=== PATIENT | female | born 1935 | race African-American/Black ===

== ENCOUNTER 2019-07-28 11:21 | Observation (INO) | payer MEDICARE ==
[2019-07-28] MEDS ORDERED: Labetalol HCl 100 MG/20 ML VIAL ONE (11:52)
[2019-07-28 12:01] LABS: #Basophils 0.1 thou/uL (0.0-0.2); #Eosinphils 0.2 thou/uL (0.0-0.7); #Lymphocytes 1.5 thou/uL (1.20-3.40); #Monocytes 0.5 thou/uL (0.11-0.59); #Neutrophils 4.7 thou/uL (1.40-6.50); %Basophils 1.1 % (0.0-1.0); %Eosinophils 2.7 % (0.0-10.0); %Lymphocytes 21.6 % (21.0-51.0); %Monocytes 6.7 % (0.0-10.0); %Neutrophils 67.9 % (42.0-75.0); Hemoglobin 13.1 g/dL (12.0-16.0); Mean Corpuscular HGB CONC 32.4 g/dL (32.0-36.0); Mean Corpuscular Hemoglobin 30.6 pg (27.0-31.0); Mean Corpuscular Volume 94.2 fL (78.0-98.0); Mean Platelet Volume 9.3 fL (7.4-10.4); Platelet Count 192 thou/uL (130-400); RBC Distribution Width 12.3 % (11.5-14.5); Red Blood Cell (RBC) Count 4.28 mill/uL (4.20-5.40); White Blood Cell (WBC) Count 6.9 thou/uL (4.8-10.8)
[2019-07-28 12:23] LABS: ALT (SGPT) 9 U/L (8-55); AST (SGOT) 11 U/L (5-34); Alkaline Phosphatase 137 U/L (40-110); Anion Gap 14 mmol/L (10-20); BUN (Urea Nitrogen) 25 mg/dL (9.8-20.1); Bilirubin, Total 0.4 mg/dL (0.2-1.2); CK (CPK) 576 U/L (29-168); Calc. Creatinine Clearance 0 mL/min (70-130); Calcium 9.3 mg/dL (7.8-10.44); Carbon Dioxide 27 mmol/L (23-31); Chloride 104 mmol/L (98-107); Estimated GFR-MDRD 62; Globulin 3.2 g/dL (2.4-3.5); Glucose 121 mg/dL (83-110); Potassium 3.9 mmol/L (3.5-5.1); Protein, Total 7.2 g/dL (6.0-8.3); Sodium 141 mmol/L (136-145)
--- NOTE | 2019-07-28 12:24 | RAD ---
Chest AP view INDICATION: Chest pain COMPARISON: Prior exam dated June 14, 2016 FINDINGS: Lungs:No focal consolidation is evident. There is stable elevation the right hemidiaphragm. Cardiac silhouette:The cardiomediastinal silhouette appears within normal limits. Pulmonary vasculature:Normal Pleural spaces:No pleural effusion or pneumothorax is demonstrated. Upper abdomen:No abnormality seen. Osseous structures: No acute osseous abnormality. Additional findings:There is stable dual-lead pacemaker overlying the left chest wall. IMPRESSION: No acute cardiopulmonary abnormality.
--- NOTE | 2019-07-28 14:49 | PDOC.HHP ---
Hospitalist HPI - History of Present Illness high blood pressure History of Present Illness: 83yo F w/ MHx of [place] s/p CABG (2010) and HTN presents for high blood pressure. Per patient, woke up this morning, felt like her vision was significantly blurry , and vision continued to be blurry despite being adherent to antihypertensive. During the day, fell and hit her knee because she lost her balance, so was brought to the ED. ED Course: In the ED, blood pressure was >210/120, so nitro and labetolol was administered , blurry vision resolved, and she was admitted to the telemetry floor. Hospitalist ROS - Review of Systems Constitutional: denies: fever, chills, sweats, weakness, malaise, other Eyes: reports: vision change Respiratory: denies: cough, dry, shortness of breath, hemoptysis, SOB with excertion, pleuritic pain, sputum, wheezing, other Cardiovascular: denies: chest pain, palpitations, orthopnea, paroxysmal noc. dyspnea, edema, light headedness, other Gastrointestinal: denies: nausea, vomiting, abdominal pain, diarrhea, constipation, melena, hematochezia, other Genitourinary: denies: dysuria, frequency, incontinence, hematuria, retention, other Neurological: denies: weakness, numbness, incoordination, change in speech, confusion, seizures, other All other systems reviewed; all pertinent +/- noted in HPI/Subj Hospitalist History - Past Medical History Cardiac: reports: CAD, HTN, [place], Other (bradycardia s/p pacemaker placement (2010 )) Heme/Onc: reports: Cancer (colon cancer s/p resection) - Past Surgical History Past Surgical History: reports: Hysterectomy - Family History Family History: reports: cardiac disorder, hypertension - Social History Smoking Status: Never smoker Alcohol: reports: None Drugs: reports: none Living Situation: Alone Activity level: independent ambulation - Exam General Appearance: NAD, awake alert Eye: PERRL ENT: normocephalic atraumatic, no oropharyngeal lesions, moist mucosa Neck: supple, symmetric, no JVD, no thyromegaly, no lymphadenopathy, no carotid bruit Heart: RRR, no murmur, no gallops, no rubs, normal peripheral pulses Heart - other findings: strong P2 Respiratory: CTAB, no wheezes, no rales, no ronchi, normal chest expansion, no tachypnea, normal percussion Gastrointestinal: soft, non-tender, non-distended, normal bowel sounds, no palpable masses, no hepatomegaly, no splenomegaly, no bruit Neurological: cranial nerve grossly intact, normal sensation to touch, no weakness, no focal deficits, no new deficit Musculoskeletal: normal tone, normal strength, no muscle wasting Psychiatric: normal affect, normal behavior, A&O x 3 Hospitalist Results - Labs Result Diagrams: 07/28/19 11:51 07/28/19 11:51 Lab results: WBC 6.9 thou/uL (4.8-10.8) 07/28/19 11:51 Hgb 13.1 g/dL (12.0-16.0) 07/28/19 11:51 Hct 40.3 % (36.0-47.0) 07/28/19 11:51 MCV 94.2 fL (78.0-98.0) 07/28/19 11:51 Plt Count 192 thou/uL (130-400) 07/28/19 11:51 Neutrophils % 67.9 % (42.0-75.0) 07/28/19 11:51 Sodium 141 mmol/L (136-145) 07/28/19 11:51 Potassium 3.9 mmol/L (3.5-5.1) 07/28/19 11:51 Chloride 104 mmol/L (98-107) 07/28/19 11:51 Carbon Dioxide 27 mmol/L (23-31) 07/28/19 11:51 BUN 25 mg/dL (9.8-20.1) H 07/28/19 11:51 Creatinine 1.03 mg/dL (0.6-1.1) 07/28/19 11:51 Glucose 121 mg/dL (83-110) H 07/28/19 11:51 Calcium 9.3 mg/dL (7.8-10.44) 07/28/19 11:51 Total Bilirubin 0.4 mg/dL (0.2-1.2) 07/28/19 11:51 AST 11 U/L (5-34) 07/28/19 11:51 ALT 9 U/L (8-55) 07/28/19 11:51 Alkaline Phosphatase 137 U/L (40-110) H 07/28/19 11:51 Creatine Kinase 576 U/L (29-168) H 07/28/19 11:51 Troponin I Less than 0.010 ng/mL (< 0.028) 07/28/19 11:51 Serum Total Protein 7.2 g/dL (6.0-8.3) 07/28/19 11:51 Albumin 4.0 g/dL (3.4-4.8) 07/28/19 11:51 - EKG Interpretation EKG: bifascicular block with nonspecific anteroseptal t-wave inversions - Radiology Interpretation Chest x-ray Status: image reviewed by hi Hospitalist H&P A/P - Problem (1) Hypertensive emergency Code(s): I16.1 - HYPERTENSIVE EMERGENCY Status: Acute (2) Coronary artery disease Code(s): I25.10 - ATHSCL HEART DISEASE OF [place] CORONARY ARTERY W/O ANG PCTRS Status: Acute - Plan Plan: * hypertensive emergency * likely due to suboptimal antihtn management as o/p * presented with >210/120 * in ED, reduced to ~180/100; at goal within first hour * subsequent 23 hours should be reduced by additional 10-15% * * continue trending trop * gave captopril once * will add hydrochlorothiazide in 6 hours to achieve progressive decrease in blood pressure on medication she'd be expected to be on at discharge * * CAD * continue aspirin, plavix * * code status * full; patient requests CPR but no intubation; surrogate decision maker is friend, as per chart
[2019-07-28 15:55] VITALS: BMI 35.2
[2019-07-28] MEDS ORDERED: Hydrochlorothiazide 25 MG TAB PO SCH ×2 (16:15→21:00)
[2019-07-28 16:30] LABS: Troponin I Less than 0.010 ng/mL (< 0.028)
[2019-07-28 19:20] LABS: Troponin I Less than 0.010 ng/mL (< 0.028)
[2019-07-29 05:16] LABS: Anion Gap 12 mmol/L (10-20); BUN (Urea Nitrogen) 24 mg/dL (9.8-20.1); Calc. Creatinine Clearance 64 mL/min (70-130); Calcium 8.7 mg/dL (7.8-10.44); Carbon Dioxide 26 mmol/L (23-31); Chloride 107 mmol/L (98-107); Estimated GFR-MDRD 66; Glucose 96 mg/dL (83-110); Magnesium 2.1 mg/dL (1.6-2.6); Sodium 141 mmol/L (136-145)
[2019-07-29] MEDS ORDERED: Carvedilol 25 MG TAB PO SCH (08:00)
[2019-07-29] MEDS ORDERED: Clopidogrel Bisulfate 75 MG TAB PO SCH (09:00)
[2019-07-29] MEDS ORDERED: Aspirin 81 mg Enteric Coated Tablet PO SCH (09:00)
[2019-07-29] MEDS ORDERED: Hydrochlorothiazide 25 MG TAB PO SCH (09:00)
[2019-07-29] MEDS ORDERED: Enoxaparin Sodium 30 MG/0.3 ML SYRINGE SC SCH (09:00)
[2019-07-29] MEDS ORDERED: Lisinopril 20 MG TAB PO SCH (09:00)
[2019-07-29 12:15] VITALS: TEMP 97.6
[2019-07-29 12:43] VITALS: BP 135/66
--- NOTE | 2019-07-31 02:00 | DIS ---
DATE OF ADMISSION: 07/28/2019 DATE OF DISCHARGE: 07/29/2019 HOSPITAL COURSE: Ms. Wakefield is an 83-year-old female with a medical history of myocardial infarction status post CABG in 2010 and hypertension, who presented for high blood pressure. She was having blurry vision, is not being adherent to her antihypertensives at home. On presentation, she was found to have grossly elevated blood pressure and was diagnosed with hypertensive emergency, likely due to suboptimal antihypertensive management as an outpatient. In the ED, the blood pressure was reduced to within goal within the 1st hour and subsequently she was admitted to the telemetry floor where the blood pressure was reduced progressively. On the day of discharge, she was hemodynamically stable and blood pressure was within goal. She was discharged home with followup appointments to her PCP after being educated regarding adjusting her antihypertensive medication. PHYSICAL EXAMINATION: VITAL SIGNS: Unremarkable. GENERAL: She was in no distress. Alert and oriented x3. NECK: There was no JVD. CARDIAC: Regular rate and rhythm. No murmurs, no gallops. LUNGS: Clear to auscultation bilaterally. No rales, wheezing, or rhonchi. No tachypnea. ABDOMEN: Nontender, nondistended. Normal bowel sounds. EXTREMITIES: No edema. NEUROLOGIC: Cranial nerves grossly intact. No focal weakness. PSYCHIATRIC: Normal affect. Normal behavior. Alert and oriented x3. ASSESSMENT AND PLAN: Ms. Wakefield is an 83-year-old female who presented with; 1. Hypertensive emergency due to suboptimal antihypertensive management as an outpatient. The patient was educated regarding lifestyle modifications as well as additional pharmacologic management. She was discharged with followup appointments to her PCP to follow her blood pressure. 2. Coronary artery disease. The patient had no signs of acute ischemia on EKG, troponin was mildly elevated, most likely due to hypertensive emergency. As an inpatient, she was continued on her home medication of aspirin and Plavix. Job ID: [id number]
== END 2019-07-29 13:34 | disposition home or self-care (01) ==
LOC: ERS 11:21 → 2SW 15:54
PROVIDERS: ADMIT Internal Medicine; ATTEND Internal Medicine
DX: I16.1 Hypertensive emergency (principal); I10 Essential (primary) hypertension; I25.10 Atherosclerotic heart disease of native coronary artery without angina pectoris; I25.2 Old myocardial infarction; Z79.02 Long term (current) use of antithrombotics/antiplatelets; Z79.82 Long term (current) use of aspirin; Z79.899 Other long term (current) drug therapy; Z85.038 Personal history of other malignant neoplasm of large intestine; Z90.49 Acquired absence of other specified parts of digestive tract; Z90.710 Acquired absence of both cervix and uterus; Z91.040 Latex allergy status; Z95.1 Presence of aortocoronary bypass graft; Z95.0 Presence of cardiac pacemaker
CPT/HCPCS: 36415; 71045; 80048; 80053; 82550; 83735; 84484; 85025; 93005; 96372; 96374; G0378; J1650

== ENCOUNTER 2020-11-17 19:58 | Inpatient (IN) | payer MEDICARE ==
[2020-11-17 20:33] LABS: #Eosinphils 0.3 thou/uL (0.0-0.7); #Lymphocytes 1.6 thou/uL (1.20-3.40); #Monocytes 0.6 thou/uL (0.11-0.59); #Neutrophils 7.4 thou/uL (1.40-6.50); %Basophils 0.2 % (0.0-1.0); %Eosinophils 2.9 % (0.0-10.0); %Lymphocytes 15.8 % (21.0-51.0); %Monocytes 6.5 % (0.0-10.0); %Neutrophils 74.7 % (42.0-75.0); Hemoglobin 11.8 g/dL (12.0-16.0); Mean Corpuscular HGB CONC 33.1 g/dL (32.0-36.0); Mean Corpuscular Hemoglobin 30.5 pg (27.0-31.0); Mean Corpuscular Volume 92.2 fL (78.0-98.0); Mean Platelet Volume 9.5 fL (7.4-10.4); Platelet Count 215 thou/uL (130-400); RBC Distribution Width 13.1 % (11.5-14.5); Red Blood Cell (RBC) Count 3.86 mill/uL (4.20-5.40); White Blood Cell (WBC) Count 9.9 thou/uL (4.8-10.8)
[2020-11-17 20:52] LABS: ALT (SGPT) 7 U/L (8-55); AST (SGOT) 14 U/L (5-34); Albumin 3.8 g/dL (3.4-4.8); Alkaline Phosphatase 115 U/L (40-110); Anion Gap 15 mmol/L (10-20); BUN (Urea Nitrogen) 60 mg/dL (9.8-20.1); Bilirubin, Total 0.3 mg/dL (0.2-1.2); Calc. Creatinine Clearance 0 mL/min (70-130); Calcium 9.2 mg/dL (7.8-10.44); Carbon Dioxide 25 mmol/L (23-31); Chloride 103 mmol/L (98-107); Globulin 3.5 g/dL (2.4-3.5); Glucose 155 mg/dL (83-110); Lipase 12 U/L (8-78); Potassium 3.6 mmol/L (3.5-5.1); Protein, Total 7.3 g/dL (5.8-8.1); Sodium 139 mmol/L (136-145)
[2020-11-17] MEDS ORDERED: Ondansetron PF 4 MG/2 ML Vial ONE (20:56)
[2020-11-17] MEDS ORDERED: Pantoprazole 40 MG VIAL ONE (20:56)
[2020-11-17] MEDS ORDERED: Mag-Al 1200 mg/1200 mg/30 ML UDCUP ONE (20:56)
[2020-11-17] MEDS ORDERED: Lidocaine Viscous Sol 2% 15 ml UD Cup ONE (20:56)
[2020-11-17] MEDS ORDERED: Famotidine/PF 20 mg/2ml Vial ONE (21:04)
[2020-11-17] MEDS ORDERED: diphenhydrAMINE 50 MG/ML VIAL ONE (21:04)
[2020-11-17] MEDS ORDERED: methylPREDNISolone Sod Succ/PF 125 MG/2 ML VIAL ONE (21:05)
[2020-11-17 21:06] LABS: Bilirubin Negative (Negative); Blood, Urine Negative (Negative); Clarity Clear (Clear); Glucose, Urine (Dipstick) Normal (Negative); Ketone, Urine Negative (Negative); Leukocyte Negative Leu/uL (Negative); Nitrite Negative (Negative); Protein, Urine (Dipstick) Negative (Neg-Trace); Specific Gravity, Urine 1.013 (1.002-1.036); Urobilinogen Normal mg/dL (Less than 2)
[2020-11-17] MEDS ORDERED: Ondansetron PF 4 MG/2 ML Vial IVP PRN (22:08)
[2020-11-17] MEDS ORDERED: Morphine 4 MG/ML VIAL SLOW IVP PRN (22:40)
[2020-11-17] MEDS ORDERED: metroNIDAZOLE 500 MG/100 ML BAG ONE (22:58)
[2020-11-18] MEDS: metroNIDAZOLE 500 MG in Premix Bag 1 BAG IVPB SCH ×2 (01:19→06:06)
[2020-11-18 01:35] VITALS: BMI 34.7
[2020-11-18] MEDS: Potassium Chloride 10 MEQ in Dextrose 5%-Lactated Ringers 1,000 ML IV SCH ×2 (03:35→07:50)
[2020-11-18 03:56] LABS: SARS-CoV-2 NAA Rapid Test Not Detected (NotDetected)
[2020-11-18 05:18] LABS: #Lymphocytes 0.9 thou/uL (1.20-3.40); #Monocytes 0.1 thou/uL (0.11-0.59); #Neutrophils 7.5 thou/uL (1.40-6.50); %Basophils 0.1 % (0.0-1.0); %Eosinophils 0.2 % (0.0-10.0); %Lymphocytes 10.8 % (21.0-51.0); %Monocytes 0.7 % (0.0-10.0); %Neutrophils 88.2 % (42.0-75.0); Hemoglobin 11.5 g/dL (12.0-16.0); Mean Corpuscular HGB CONC 32.6 g/dL (32.0-36.0); Mean Corpuscular Hemoglobin 30.1 pg (27.0-31.0); Mean Corpuscular Volume 92.4 fL (78.0-98.0); Mean Platelet Volume 9.9 fL (7.4-10.4); Platelet Count 194 thou/uL (130-400); RBC Distribution Width 13.1 % (11.5-14.5); Red Blood Cell (RBC) Count 3.81 mill/uL (4.20-5.40); White Blood Cell (WBC) Count 8.5 thou/uL (4.8-10.8)
[2020-11-18 05:34] LABS: Anion Gap 14 mmol/L (10-20); BUN (Urea Nitrogen) 52 mg/dL (9.8-20.1); Calc. Creatinine Clearance 24 mL/min (70-130); Calcium 8.6 mg/dL (7.8-10.44); Carbon Dioxide 23 mmol/L (23-31); Chloride 104 mmol/L (98-107); Glucose 195 mg/dL (83-110); Sodium 137 mmol/L (136-145)
[2020-11-18 06:27] LABS: Creatinine, Urine 78.59 mg/dL (47-110)
[2020-11-18] MEDS: Famotidine/PF 20 mg/2ml Vial SLOW IVP SCH (07:41)
[2020-11-18] MEDS: Sodium Chloride 0.9% 1,000 ML IV SCH (11:43)
[2020-11-18] MEDS ORDERED: metroNIDAZOLE 500 MG in Premix Bag 1 BAG IVPB SCH (14:00)
[2020-11-18] MEDS ORDERED: Potassium Chloride 10 MEQ in Dextrose 5%-Lactated Ringers 1,000 ML IV SCH (14:00)
[2020-11-18] MEDS ORDERED: GoLYTELY 4,000 ml Bottle PO SCH ×2 (14:30→15:00)
[2020-11-18] MEDS: hydrALAZINE 20 MG/ML VIAL SLOW IVP PRN (15:27)
[2020-11-19] MEDS: metroNIDAZOLE 500 MG in Premix Bag 1 BAG IVPB SCH ×3 (02:47→18:16)
[2020-11-19] MEDS: Sodium Chloride 0.9% 1,000 ML IV SCH ×3 (02:47→13:25)
[2020-11-19 05:46] LABS: #Eosinphils 0.1 thou/uL (0.0-0.7); #Lymphocytes 1.9 thou/uL (1.20-3.40); #Monocytes 0.6 thou/uL (0.11-0.59); #Neutrophils 8.4 thou/uL (1.40-6.50); %Basophils 0.3 % (0.0-1.0); %Eosinophils 0.8 % (0.0-10.0); %Lymphocytes 17.3 % (21.0-51.0); %Monocytes 5.5 % (0.0-10.0); %Neutrophils 76.1 % (42.0-75.0); Hemoglobin 10.1 g/dL (12.0-16.0); Mean Corpuscular HGB CONC 32.8 g/dL (32.0-36.0); Mean Corpuscular Hemoglobin 30.5 pg (27.0-31.0); Mean Corpuscular Volume 93.2 fL (78.0-98.0); Mean Platelet Volume 9.6 fL (7.4-10.4); Platelet Count 182 thou/uL (130-400); RBC Distribution Width 13.2 % (11.5-14.5); Red Blood Cell (RBC) Count 3.31 mill/uL (4.20-5.40)
[2020-11-19 06:02] LABS: Anion Gap 11 mmol/L (10-20); BUN (Urea Nitrogen) 32 mg/dL (9.8-20.1); Calc. Creatinine Clearance 39 mL/min (70-130); Calcium 8.1 mg/dL (7.8-10.44); Carbon Dioxide 27 mmol/L (23-31); Chloride 108 mmol/L (98-107); Glucose 97 mg/dL (83-110); Potassium 3.8 mmol/L (3.5-5.1); Sodium 142 mmol/L (136-145)
[2020-11-19] MEDS: Famotidine/PF 20 mg/2ml Vial SLOW IVP SCH (08:27)
[2020-11-19] MEDS ORDERED: PROPOFOL 200 MG/20 ML VIAL ONE (13:19)
[2020-11-19] MEDS ORDERED: Lidocaine 1% PF 5 ML VIAL ONE (13:19)
[2020-11-19] MEDS ORDERED: Ondansetron HCl/PF 4 MG/2 ML Vial IVP PRN (13:29)
[2020-11-19] MEDS ORDERED: Pantoprazole 40 MG GRANULES PACKET PO SCH (15:14)
[2020-11-19] MEDS: hydrALAZINE 20 MG/ML VIAL SLOW IVP PRN (15:25)
[2020-11-19] MEDS: predniSONE 50 MG TAB PO SCH (20:30)
[2020-11-20] MEDS: predniSONE 50 MG TAB PO SCH ×2 (01:25→08:58)
[2020-11-20] MEDS: metroNIDAZOLE 500 MG in Premix Bag 1 BAG IVPB SCH (01:25)
[2020-11-20] MEDS: hydrALAZINE 20 MG/ML VIAL SLOW IVP PRN (03:39)
[2020-11-20] MEDS ORDERED: diphenhydrAMINE 50 MG CAP PO SCH (08:00)
[2020-11-20 08:26] LABS: #Lymphocytes 1.1 thou/uL (1.20-3.40); #Monocytes 0.1 thou/uL (0.11-0.59); #Neutrophils 7.3 thou/uL (1.40-6.50); %Basophils 0.1 % (0.0-1.0); %Eosinophils 0.1 % (0.0-10.0); %Lymphocytes 12.4 % (21.0-51.0); %Monocytes 0.9 % (0.0-10.0); %Neutrophils 86.4 % (42.0-75.0); Hemoglobin 12.4 g/dL (12.0-16.0); Mean Corpuscular HGB CONC 31.9 g/dL (32.0-36.0); Mean Corpuscular Hemoglobin 30.1 pg (27.0-31.0); Mean Corpuscular Volume 94.4 fL (78.0-98.0); Mean Platelet Volume 9.8 fL (7.4-10.4); Platelet Count 207 thou/uL (130-400); RBC Distribution Width 13.3 % (11.5-14.5); Red Blood Cell (RBC) Count 4.13 mill/uL (4.20-5.40); White Blood Cell (WBC) Count 8.5 thou/uL (4.8-10.8)
[2020-11-20 08:43] LABS: ALT (SGPT) Less than 7 U/L (8-55); AST (SGOT) 11 U/L (5-34); Albumin 3.5 g/dL (3.4-4.8); Alkaline Phosphatase 115 U/L (40-110); Anion Gap 15 mmol/L (10-20); BUN (Urea Nitrogen) 20 mg/dL (9.8-20.1); Bilirubin, Total 0.3 mg/dL (0.2-1.2); Calc. Creatinine Clearance 43 mL/min (70-130); Calcium 8.9 mg/dL (7.8-10.44); Carbon Dioxide 24 mmol/L (23-31); Chloride 106 mmol/L (98-107); Globulin 3.2 g/dL (2.4-3.5); Glucose 143 mg/dL (83-110); Potassium 3.9 mmol/L (3.5-5.1); Protein, Total 6.7 g/dL (5.8-8.1); Sodium 141 mmol/L (136-145)
[2020-11-20] MEDS ORDERED: Carvedilol 25 MG TAB PO SCH (09:00)
[2020-11-20] MEDS ORDERED: Lisinopril 20 MG TAB PO SCH (09:00)
[2020-11-20] MEDS ORDERED: Amlodipine 5 MG TAB PO SCH (09:00)
[2020-11-20] MEDS ORDERED: Furosemide 20 MG TAB PO SCH (09:00)
[2020-11-20] MEDS ORDERED: Iopamidol 370 76% 100 ML VIAL ONE (09:59)
[2020-11-20 11:22] VITALS: BP 179/78; TEMP 98
== END 2020-11-20 16:17 | disposition home or self-care (01) | DRG 394 ==
LOC: ERS 19:58 → 2SW 22:08
PROVIDERS: ADMIT Internal Medicine; ATTEND Internal Medicine
PROC: 0DB78ZX Excision of Stomach, Pylorus, Via Natural or Artificial Opening Endoscopic, Diagnostic (ICD-10-PCS; principal; 2020-11-19)
PROC: 0DBM8ZZ Excision of Descending Colon, Via Natural or Artificial Opening Endoscopic (ICD-10-PCS; 2020-11-19)
PROC: 0DBL8ZZ Excision of Transverse Colon, Via Natural or Artificial Opening Endoscopic (ICD-10-PCS; 2020-11-19)
DX: D3A.019 Benign carcinoid tumor of the small intestine, unspecified portion (principal); N17.9 Acute kidney failure, unspecified; K57.32 Diverticulitis of large intestine without perforation or abscess without bleeding; Z20.822 Contact with and (suspected) exposure to COVID-19; I25.10 Atherosclerotic heart disease of native coronary artery without angina pectoris; Z90.710 Acquired absence of both cervix and uterus; I49.5 Sick sinus syndrome; E66.9 Obesity, unspecified; E86.9 Volume depletion, unspecified; N18.30 Chronic kidney disease, stage 3 unspecified; I12.9 Hypertensive chronic kidney disease with stage 1 through stage 4 chronic kidney disease, or unspecified chronic kidney disease; D53.9 Nutritional anemia, unspecified; M48.10 Ankylosing hyperostosis [Forestier], site unspecified; K29.70 Gastritis, unspecified, without bleeding; K20.90 Esophagitis, unspecified without bleeding; D12.4 Benign neoplasm of descending colon; D12.3 Benign neoplasm of transverse colon; Z95.1 Presence of aortocoronary bypass graft; Z95.0 Presence of cardiac pacemaker; Z85.038 Personal history of other malignant neoplasm of large intestine; Z90.49 Acquired absence of other specified parts of digestive tract; Z91.09 Other allergy status, other than to drugs and biological substances; Z79.899 Other long term (current) drug therapy; Z79.02 Long term (current) use of antithrombotics/antiplatelets; Z68.34 Body mass index [BMI] 34.0-34.9, adult
CPT/HCPCS: 36415; 51701; 74176; 74178; 80048; 80053; 81003; 82274; 82550; 82570; 83690; 84300; 85025; 88305; 93306; 96365; 96367; 96375; C9113; J0360; J1200; J1956; J2405; J2704; J2930; J7512; Q9967; S0028; U0002

== ENCOUNTER 2021-05-28 17:13 | Inpatient (IN) | payer MEDICARE ==
[2021-05-28 18:01] LABS: #Eosinphils 1.5 thou/uL (0.0-0.7); #Lymphocytes 2.4 thou/uL (1.20-3.40); #Monocytes 1.1 thou/uL (0.11-0.59); #Neutrophils 10.6 thou/uL (1.40-6.50); %Basophils 0.1 % (0.0-1.0); %Eosinophils 9.6 % (0.0-10.0); %Lymphocytes 15.2 % (21.0-51.0); %Monocytes 6.9 % (0.0-10.0); %Neutrophils 68.2 % (42.0-75.0); Hemoglobin 12.3 g/dL (12.0-16.0); Mean Corpuscular HGB CONC 31.9 g/dL (32.0-36.0); Mean Corpuscular Hemoglobin 30.4 pg (27.0-31.0); Mean Corpuscular Volume 95.5 fL (78.0-98.0); Platelet Count 270 thou/uL (130-400); RBC Distribution Width 14.1 % (11.5-14.5); Red Blood Cell (RBC) Count 4.03 mill/uL (4.20-5.40); White Blood Cell (WBC) Count 15.5 thou/uL (4.8-10.8)
[2021-05-28] MEDS ORDERED: Furosemide 40 MG/4 ML VIAL ONE (18:02)
[2021-05-28] MEDS ORDERED: Albuterol 200 PUFF (6.7GM INHALER) ONE (18:02)
[2021-05-28] MEDS ORDERED: methylPREDNISolone Sod Succ/PF 125 MG/2 ML VIAL ONE (18:02)
[2021-05-28] MEDS ORDERED: Nitroglycerin 50 MG/250 ML BOT 250 ML ONE (18:02)
[2021-05-28 18:31] LABS: ALT (SGPT) 12 U/L (8-55); AST (SGOT) 26 U/L (5-34); Albumin 3.8 g/dL (3.4-4.8); Alkaline Phosphatase 123 U/L (40-110); Anion Gap 14 mmol/L (10-20); BUN (Urea Nitrogen) 9 mg/dL (9.8-20.1); Bilirubin, Total 0.9 mg/dL (0.2-1.2); Calc. Creatinine Clearance 0 mL/min (70-130); Calcium 9.3 mg/dL (7.8-10.44); Carbon Dioxide 28 mmol/L (23-31); Chloride 102 mmol/L (98-107); Globulin 3.7 g/dL (2.4-3.5); Glucose 179 mg/dL (83-110); Potassium 3.5 mmol/L (3.5-5.1); Protein, Total 7.5 g/dL (5.8-8.1); Sodium 140 mmol/L (136-145)
[2021-05-28] MEDS ORDERED: Vancomycin 1 GM/200 ML BAG ONE (19:04)
[2021-05-28 19:23] LABS: Bilirubin Negative (Negative); Blood, Urine Negative (Negative); Clarity Clear (Clear); Glucose, Urine (Dipstick) Normal (Negative); Ketone, Urine Negative (Negative); Leukocyte Negative Leu/uL (Negative); Nitrite Negative (Negative); Protein, Urine (Dipstick) Negative (Neg-Trace); Specific Gravity, Urine 1.006 (1.002-1.036); Urobilinogen Normal mg/dL (Less than 2)
[2021-05-28] MEDS ORDERED: Ondansetron ODT 4 MG TAB PO PRN (19:47)
[2021-05-28] MEDS ORDERED: Acetaminophen 650 MG Suppository PR PRN (19:47)
[2021-05-28] MEDS ORDERED: Acetaminophen 325 MG TAB PO PRN (19:47)
[2021-05-28] MEDS ORDERED: Ondansetron PF 4 MG/2 ML Vial IVP PRN (19:47)
[2021-05-28 20:01] LABS: SARS-CoV-2 NAA Rapid Test Not Detected (NotDetected)
[2021-05-28] MEDS ORDERED: Potassium Chloride 20 MEQ TAB PO SCH (20:15)
[2021-05-28] MEDS ORDERED: Piperacillin/Tazobactam 4.5 GM in Sodium Chloride 0.9% 100 ML IVPB SCH (20:30)
[2021-05-28] MEDS ORDERED: Electrolyte Replacement Protocol 1 EACH FS SCH (21:00)
[2021-05-28 22:18] VITALS: BMI 34.8
[2021-05-28] MEDS: hydrALAZINE 20 MG/ML VIAL SLOW IVP PRN (22:35)
[2021-05-28 22:48] LABS: Lactic Acid 1.4 mmol/L (0.5-2.2)
[2021-05-28 22:53] LABS: Magnesium 1.4 mg/dL (1.6-2.6)
[2021-05-28 22:58] LABS: Troponin I 0.039 ng/mL (< 0.028)
[2021-05-28] MEDS: Labetalol HCl 100 MG/20 ML VIAL SLOW IVP PRN (23:34)
[2021-05-29] MEDS: Nitroglycerin 50 MG/250 ML BOT 250 ML IVPB SCH ×2 (00:35→16:50)
[2021-05-29 00:51] LABS: Troponin I 0.036 ng/mL (< 0.028)
[2021-05-29] MEDS ORDERED: cefTRIAXone\\ROCEPHIN 1 GM VIAL ONE (03:48)
[2021-05-29] MEDS: cefTRIAXone\\ROCEPHIN 1 GM in Sodium Chloride 0.9% 100 ML IVPB SCH (03:52)
[2021-05-29 03:55] LABS: #Lymphocytes 0.9 thou/uL (1.20-3.40); #Monocytes 0.1 thou/uL (0.11-0.59); #Neutrophils 7.9 thou/uL (1.40-6.50); %Eosinophils 0.3 % (0.0-10.0); %Lymphocytes 10.4 % (21.0-51.0); %Monocytes 1.5 % (0.0-10.0); %Neutrophils 87.9 % (42.0-75.0); Hemoglobin 11.6 g/dL (12.0-16.0); Mean Corpuscular HGB CONC 32.9 g/dL (32.0-36.0); Mean Corpuscular Hemoglobin 31.1 pg (27.0-31.0); Mean Corpuscular Volume 94.5 fL (78.0-98.0); Mean Platelet Volume 9.1 fL (7.4-10.4); Platelet Count 238 thou/uL (130-400); Red Blood Cell (RBC) Count 3.72 mill/uL (4.20-5.40)
[2021-05-29 04:24] LABS: Anion Gap 12 mmol/L (10-20); BUN (Urea Nitrogen) 10 mg/dL (9.8-20.1); Calc. Creatinine Clearance 65 mL/min (70-130); Carbon Dioxide 33 mmol/L (23-31); Chloride 98 mmol/L (98-107); Glucose 183 mg/dL (83-110); Magnesium 1.4 mg/dL (1.6-2.6); Sodium 140 mmol/L (136-145)
[2021-05-29] MEDS: Labetalol HCl 100 MG/20 ML VIAL SLOW IVP PRN (05:06)
[2021-05-29] MEDS: Magnesium 2 GM/50 ML 2 GM in Premix Bag 1 BAG IVPB SCH ×2 (05:20→06:25)
[2021-05-29] MEDS: Potassium Chloride 20 MEQ in Premix Bag 1 BAG IVPB SCH ×2 (05:20→08:40)
[2021-05-29] MEDS: Enoxaparin Sodium 40 MG/0.4 ML SYRINGE SC SCH (08:40)
[2021-05-29] MEDS ORDERED: Potassium Chloride 20 MEQ TAB PO SCH (10:45)
[2021-05-29] MEDS ORDERED: Furosemide 40 MG/4 ML VIAL SLOW IVP SCH (10:45)
[2021-05-29] MEDS ORDERED: Carvedilol 25 MG TAB PO SCH (12:15)
[2021-05-29] MEDS ORDERED: Lisinopril 20 MG TAB PO SCH (12:15)
[2021-05-29] MEDS ORDERED: Aspirin 81 mg Enteric Coated Tablet PO SCH (14:00)
[2021-05-29] MEDS ORDERED: Clopidogrel Bisulfate 75 MG TAB PO SCH (14:00)
[2021-05-29] MEDS: Carvedilol 25 MG TAB PO SCH (16:51)
[2021-05-30] MEDS: cefTRIAXone\\ROCEPHIN 1 GM in Sodium Chloride 0.9% 100 ML IVPB SCH (03:33)
[2021-05-30 03:51] LABS: #Eosinphils 0.3 thou/uL (0.0-0.7); #Lymphocytes 1.2 thou/uL (1.20-3.40); #Monocytes 0.8 thou/uL (0.11-0.59); #Neutrophils 7.3 thou/uL (1.40-6.50); %Eosinophils 3.2 % (0.0-10.0); %Lymphocytes 12.5 % (21.0-51.0); %Monocytes 8.1 % (0.0-10.0); %Neutrophils 76.2 % (42.0-75.0); Hemoglobin 10.2 g/dL (12.0-16.0); Mean Corpuscular HGB CONC 32.7 g/dL (32.0-36.0); Mean Corpuscular Hemoglobin 30.9 pg (27.0-31.0); Mean Corpuscular Volume 94.7 fL (78.0-98.0); Mean Platelet Volume 9.3 fL (7.4-10.4); Platelet Count 210 thou/uL (130-400); RBC Distribution Width 14.2 % (11.5-14.5); Red Blood Cell (RBC) Count 3.31 mill/uL (4.20-5.40); White Blood Cell (WBC) Count 9.5 thou/uL (4.8-10.8)
[2021-05-30 04:14] LABS: Anion Gap 10 mmol/L (10-20); BUN (Urea Nitrogen) 16 mg/dL (9.8-20.1); Calc. Creatinine Clearance 53 mL/min (70-130); Calcium 8.7 mg/dL (7.8-10.44); Carbon Dioxide 32 mmol/L (23-31); Chloride 101 mmol/L (98-107); Glucose 107 mg/dL (83-110); Magnesium 2.2 mg/dL (1.6-2.6); Phosphorus 3.7 mg/dL (2.3-4.7); Potassium 3.5 mmol/L (3.5-5.1); Sodium 139 mmol/L (136-145)
[2021-05-30] MEDS: Enoxaparin Sodium 40 MG/0.4 ML SYRINGE SC SCH (07:39)
[2021-05-30] MEDS: Saccharomyces boulardii 250 MG CAP PO SCH (07:40)
[2021-05-30] MEDS: Clopidogrel Bisulfate 75 MG TAB PO SCH (07:40)
[2021-05-30] MEDS: Carvedilol 25 MG TAB PO SCH ×2 (07:40→16:18)
[2021-05-30] MEDS: Aspirin 81 mg Enteric Coated Tablet PO SCH (07:40)
[2021-05-30] MEDS: Lisinopril 20 MG TAB PO SCH (07:40)
[2021-05-30] MEDS ORDERED: Potassium Chloride 20 MEQ TAB PO SCH ×3 (07:45→16:45)
[2021-05-30] MEDS: Furosemide 40 MG/4 ML VIAL SLOW IVP SCH ×2 (11:11→20:34)
[2021-05-30] MEDS ORDERED: Electrolyte Replacement Protocol 1 EACH FS SCH (14:00)
[2021-05-30 14:41] LABS: Potassium 3.8 mmol/L (3.5-5.1)
[2021-05-31 05:06] LABS: #Eosinphils 0.4 thou/uL (0.0-0.7); #Lymphocytes 1.4 thou/uL (1.20-3.40); #Monocytes 0.8 thou/uL (0.11-0.59); #Neutrophils 5.2 thou/uL (1.40-6.50); %Basophils 0.5 % (0.0-1.0); %Eosinophils 4.8 % (0.0-10.0); %Lymphocytes 17.5 % (21.0-51.0); %Monocytes 9.7 % (0.0-10.0); %Neutrophils 67.4 % (42.0-75.0); Hemoglobin 11.3 g/dL (12.0-16.0); Mean Corpuscular HGB CONC 32.3 g/dL (32.0-36.0); Mean Corpuscular Hemoglobin 30.7 pg (27.0-31.0); Mean Corpuscular Volume 95.3 fL (78.0-98.0); Mean Platelet Volume 9.2 fL (7.4-10.4); Platelet Count 221 thou/uL (130-400); Red Blood Cell (RBC) Count 3.68 mill/uL (4.20-5.40); White Blood Cell (WBC) Count 7.8 thou/uL (4.8-10.8)
[2021-05-31] MEDS: hydrALAZINE 20 MG/ML VIAL SLOW IVP PRN (05:16)
[2021-05-31 05:25] LABS: Anion Gap 11 mmol/L (10-20); BUN (Urea Nitrogen) 16 mg/dL (9.8-20.1); Calc. Creatinine Clearance 60 mL/min (70-130); Calcium 9.1 mg/dL (7.8-10.44); Carbon Dioxide 34 mmol/L (23-31); Chloride 101 mmol/L (98-107); Glucose 86 mg/dL (83-110); Sodium 142 mmol/L (136-145)
[2021-05-31] MEDS ORDERED: Magnesium 2 GM/50 ML 2 GM in Premix Bag 1 BAG IVPB SCH (07:45)
[2021-05-31] MEDS: Clopidogrel Bisulfate 75 MG TAB PO SCH (09:21)
[2021-05-31] MEDS: Carvedilol 25 MG TAB PO SCH ×2 (09:21→17:47)
[2021-05-31] MEDS: Enoxaparin Sodium 40 MG/0.4 ML SYRINGE SC SCH (09:21)
[2021-05-31] MEDS: Aspirin 81 mg Enteric Coated Tablet PO SCH (09:21)
[2021-05-31] MEDS: Saccharomyces boulardii 250 MG CAP PO SCH (09:21)
[2021-05-31] MEDS: Potassium Chloride 20 MEQ TAB PO SCH (09:22)
[2021-05-31] MEDS: Lisinopril 20 MG TAB PO SCH (09:22)
[2021-05-31] MEDS ORDERED: Amlodipine 5 MG TAB PO SCH (09:45)
[2021-05-31] MEDS: Furosemide 40 MG/4 ML VIAL SLOW IVP SCH (12:31)
[2021-06-01 04:55] LABS: Magnesium 2.1 mg/dL (1.6-2.6)
[2021-06-01] MEDS: Potassium Chloride 20 MEQ TAB PO SCH (08:31)
[2021-06-01] MEDS: Clopidogrel Bisulfate 75 MG TAB PO SCH (08:32)
[2021-06-01] MEDS: Aspirin 81 mg Enteric Coated Tablet PO SCH (08:32)
[2021-06-01] MEDS: Carvedilol 25 MG TAB PO SCH ×2 (08:32→16:28)
[2021-06-01] MEDS: Saccharomyces boulardii 250 MG CAP PO SCH (08:32)
[2021-06-01] MEDS: Enoxaparin Sodium 40 MG/0.4 ML SYRINGE SC SCH (08:33)
[2021-06-01] MEDS: Lisinopril 20 MG TAB PO SCH (08:38)
[2021-06-01] MEDS ORDERED: Amlodipine 5 MG TAB PO SCH (09:00)
[2021-06-01] MEDS: hydrALAZINE 20 MG/ML VIAL SLOW IVP PRN (23:53)
[2021-06-02] MEDS: Clopidogrel Bisulfate 75 MG TAB PO SCH (08:46)
[2021-06-02] MEDS: Aspirin 81 mg Enteric Coated Tablet PO SCH (08:48)
[2021-06-02] MEDS: Carvedilol 25 MG TAB PO SCH (08:48)
[2021-06-02] MEDS: Enoxaparin Sodium 40 MG/0.4 ML SYRINGE SC SCH (08:48)
[2021-06-02] MEDS: Saccharomyces boulardii 250 MG CAP PO SCH (08:48)
[2021-06-02] MEDS ORDERED: Hydrochlorothiazide 25 MG TAB PO SCH (09:00)
[2021-06-02] MEDS ORDERED: Lisinopril 20 MG TAB PO SCH (09:00)
[2021-06-02] MEDS ORDERED: Amlodipine 10 MG TAB PO SCH (09:00)
[2021-06-02] MEDS ORDERED: hydrALAZINE 25 MG TAB PO SCH (09:00)
[2021-06-02 12:49] VITALS: BP 176/77; TEMP 98.8
== END 2021-06-02 15:30 | disposition home or self-care (01) | DRG 291 ==
LOC: ERS 17:13 → CCU 19:15 → 2NO 05-30 12:10
PROVIDERS: ADMIT Internal Medicine; ATTEND Internal Medicine
DX: I13.0 Hypertensive heart and chronic kidney disease with heart failure and stage 1 through stage 4 chronic kidney disease, or unspecified chronic kidney disease (principal); J96.01 Acute respiratory failure with hypoxia; I50.33 Acute on chronic diastolic (congestive) heart failure; I16.1 Hypertensive emergency; I25.810 Atherosclerosis of coronary artery bypass graft(s) without angina pectoris; Z20.822 Contact with and (suspected) exposure to COVID-19; E87.6 Hypokalemia; D72.829 Elevated white blood cell count, unspecified; E83.42 Hypomagnesemia; E66.9 Obesity, unspecified; E78.5 Hyperlipidemia, unspecified; I48.91 Unspecified atrial fibrillation; N18.2 Chronic kidney disease, stage 2 (mild); Z91.041 Radiographic dye allergy status; I25.2 Old myocardial infarction; Z79.82 Long term (current) use of aspirin; Z79.01 Long term (current) use of anticoagulants; Z79.899 Other long term (current) drug therapy; Z95.0 Presence of cardiac pacemaker; Z68.36 Body mass index [BMI] 36.0-36.9, adult
CPT/HCPCS: 36415; 71045; 80048; 80053; 81003; 83605; 83735; 83880; 84100; 84484; 85025; 87040; 93005; 93010; 93306; 93798; 93970; 97139; J0360; J0696; J1650; J1940; J2543; J2930; J3370; J3475; J3480; J3490; U0002